=== PATIENT | female | born 2000 | race Caucasian/White ===

== ENCOUNTER 2020-10-16 23:10 | Emergency (ER) | payer MEDICAID, SELFPAY ==
[2020-10-17 01:10] VITALS: BP 105/60; PULSE 83; RESP 16; TEMP 37.4; O2SAT 100
[2020-10-17 02:03] VITALS: BP 123/62; PULSE 84; RESP 16; TEMP 37.2; O2SAT 98; BMI 21.4
[2020-10-17 02:37] LABS: Appearance Urine HAZY; Color Urine DARK YELLOW; Glucose Urine UA NEG (NEG); Leukocyte Esterase Urine 2+ (NEG); Nitrite Urine NEG (NEG); Specific Gravity - Urine 1.025 (1.005-1.025); Urine Blood 2+ (NEG); Urine Ketones >=80 MG/DL (NEG); Urine Protein 1+ MG/DL (NEG-TRACE)
[2020-10-17 02:38] LABS: UPreg QC Valid YES; Urine Pregnancy NEGATIVE (NEGATIVE)
[2020-10-17 02:43] LABS: Bacteria Urine 2+ /LPF; RBC Urine 0-2 /HPF (0); Squamous Epithelial Cell Urine 1+ /LPF
--- NOTE | 2020-10-17 02:43 | PC.NURSE ---
URINE SPECIMEN COLLECTED AND SENT FOR ANALYSIS. AWAITING RESULTS.
--- NOTE | 2020-10-17 02:48 | ED_ITS ---
HPI - Female Genitourinary General Chief complaint: Nausea/Vomiting/Diarrhea Stated complaint: Vomiting/Nausea Time Seen by Provider: 10/17/20 02:09 Source: patient Mode of arrival: ambulatory Limitations: no limitations History of Present Illness HPI Narrative: Patient been feeling diffuse lower abdominal pain lower back pain weakness nausea and dysuria for last 3 days patient had similar symptoms last year when she has UTI patient denies any fever or chills no vomiting no vaginal discharge or bleeding or hematuria. Patient vomited 1 time only yesterday and able to drink fluids today MD elicited complaint: dysuria Onset (ago): day(s) (3) Severity: mild Related Data Previous Rx's Medication Instructions Recorded levofloxacin 500 mg PO DAILY 7 Days #7 tab 10/17/20 phenazopyridine [Pyridium] 200 mg PO TID PRN #6 tab 10/17/20 Allergies Allergy/AdvReac Type Severity Reaction Status Date / Time No Known Allergies Allergy Unverified 06/30/20 18:38 [No Known Allergies*] Review of Systems Review of Systems: Constitutional : No Weight loss, No Fever, No Chills ENT/Mouth : No sore throat, No Rhinorrhea Eyes: No Eye Pain, No Swelling Cardiovascular : No Chest Pain, no palpitations Respiratory : No Cough, No Sputum, no shortness of breath Gastrointestinal : + Nausea, +Vomiting, No Diarrhea, No abdominal Pain, no black stools Genitourinary : ++ Dysuria, + Urinary Frequency Musculoskeletal : No joint pain, No Myalgias, No Joint Swelling Skin : No Skin Lesions, No rash Neuro : No Weakness, No Numbness, No Dizziness, No Headache Psych : No Anxiety/Panic, No Depression Heme/Lymph: No Bruising, No Lymphadenopathy Endocrine : No Polyuria, No Polydipsia All other systems reviewed and are negative [facility] Social History Social History Alcohol intake: never Smoking Status: Never smoker Use of substances other than those prescribed or required for medical reasons: No Advance Directives: No Advance Directives Information Provided: No Physical Exam Vital Signs: Vital Signs: Last Vital Signs Temp 98.9 F 10/17/20 02:03 Pulse 84 10/17/20 02:03 Resp 16 10/17/20 02:03 BP 123/62 10/17/20 02:03 Pulse Ox 98 10/17/20 02:03 Body Mass Index 21.4 Appearance: Alert. Oriented X3. No acute distress. Eyes: Pupils equal, round and reactive to light. ENT: Pharynx normal. Neck: Normal inspection. Neck supple. CVS: Normal heart rate and rhythm. Pulses normal. Respiratory: No respiratory distress. Breath sounds normal. Abdomen: Soft and nontender. Bowel sounds are present, no mass palpable, no CVA tenderness Skin: Skin warm and dry. Normal skin color. Normal skin turgor. Extremities: No lower extremity edema. Neuro: Oriented X 3. No motor deficit. No sensory deficit. MDM - Female Genitourinary MDM Narrative Medical decision making narrative: Patient with UTI uncomplicated. Will give her Levaquin and Pyridium for symptomatic treatment advised to follow-up with PCP Lab Data Attestation: I reviewed the patient's lab results. Labs: Lab Results 10/17/20 Range/Units 02:31 Urine Color DARK YELLOW Urine Appearance HAZY Urine pH 6.0 (5.0-8.0) Ur Specific [place] 1.025 (1.005-1.025) Urine Protein 1+ H (NEG-TRACE) MG/DL Urine Glucose (UA) NEG (NEG) MG/DL Urine Ketones >=80 (NEG) MG/DL Urine Blood 2+ H (NEG) Urine Nitrite NEG (NEG) Ur Leukocyte Esterase 2+ H (NEG) Urine RBC 0-2 (0) /HPF Urine WBC 76-150 H (0-4) /HPF Ur Squamous Epith Cells 1+ /LPF Urine Bacteria 2+ /LPF Urine Test NEGATIVE (NEGATIVE) Discharge Plan Discharge Clinical Impression: UTI (urinary tract infection) Qualifiers: Urinary tract infection type: acute cystitis Hematuria presence: without hematuria Qualified Code(s): N30.00 - Acute cystitis without hematuria Patient Disposition: Home, Self-Care Instructions: Urinary Tract Infection in Women (ED) Additional Instructions: Drink plenty fluids Take medication as prescribed Report to the ER/PCP if high fever/vomiting not feeling better Prescriptions: New levofloxacin 500 mg tablet 500 mg PO DAILY 7 Days Qty: 7 RF: 0 phenazopyridine [Pyridium] 200 mg tablet 200 mg PO TID PRN (Reason: pain) Qty: 6 RF: 0 Interventions: ED Discharge Assessment Last Done: 10/17/20 03:11 Discharge Date/Time: 10/17/20 03:11
[2020-10-17] MEDS: Phenazopyridine HCL 200 MG TABLET PO (02:59)
[2020-10-17] MEDS: levoFLOXacin 500 MG TABLET PO (02:59)
== END 2020-10-17 03:11 | disposition home or self-care (01) ==
PROVIDERS: Emergency Provider Internal Medicine
DX: N30.00 Acute cystitis without hematuria (principal)
CPT/HCPCS: 81001; 81025; 87086; 87088; 87186; 99283; 99284

== ENCOUNTER 2021-04-11 07:07 | Emergency (ER) | payer MEDICAID, SELFPAY ==
[2021-04-11 07:21] VITALS: BP 119/61; PULSE 76; RESP 16; TEMP 37.1; O2SAT 100; BMI 20.3
[2021-04-11 07:37] LABS: Glucose Urine UA NEG (NEG); Leukocyte Esterase Urine NEG (NEG); Nitrite Urine NEG (NEG); Specific Gravity - Urine >= 1.030 (1.005-1.025); UPreg QC Valid YES; Urine Blood NEG (NEG); Urine Ketones NEG (NEG); Urine Pregnancy POSITIVE (NEGATIVE); Urine Protein TRACE MG/DL (NEG-TRACE)
[2021-04-11 07:38] LABS: Appearance Urine HAZY; Color Urine YELLOW
--- NOTE | 2021-04-11 08:13 | ED_ITS ---
HPI - Nausea/Vomiting/Diarrhea General Chief complaint: Nausea/Vomiting/Diarrhea Stated complaint: dizzyness, nauseous Time Seen by Provider: 04/11/21 08:01 Source: patient Mode of arrival: ambulatory Limitations: no limitations History of Present Illness HPI Narrative: 21 yo female here with nausea/vomiting x several days, sensitive to Do certain smells. Also complaining of some dizziness and generalized weakness with moving around. Her last menstrual cycle was approximately 5 weeks ago. She is sexually active and is concerned about . She denies any abdominal pain or vaginal bleeding. MD elicited complaint: nausea and vomiting Associated nausea: Yes Related Data Previous Rx's Medication Instructions Recorded levofloxacin 500 mg PO DAILY 7 Days #7 tab 10/17/20 phenazopyridine [Pyridium] 200 mg PO TID PRN #6 tab 10/17/20 prenat.vits,rashida,ipy-ujqt-himok 1 tab PO DAILY #30 tab 04/11/21 pyridoxine (vitamin B6) 50 mg PO BID PRN #10 tab 04/11/21 Allergies Allergy/AdvReac Type Severity Reaction Status Date / Time No Known Allergies Allergy Unverified 06/30/20 18:38 [No Known Allergies*] Review of Systems Review of Systems: Yes all other systems are reviewed and are negative Constitutional: Constitutional: Reports no additional constitutional complain ts, Denies body ache(s), Denies chills, Denies fever(s), Denies headache(s) and Reports weakness Eyes: Eyes: Reports no additional eye complaints and Denies change in vision ENT: Reports system reviewed and no additional complaints, except as documented, Reports dizziness, Denies headache(s), Denies nasal congestion, Denies nasal discharge and Denies neck pain Cardiovascular: Cardiovascular: Reports no additional cardiovascular complaints, Denies chest pain, Denies leg edema and Denies dyspnea Respiratory: Respiratory: Reports no additional respiratory complaints, Denies cough and Denies dyspnea Gastrointestinal: Gastrointestinal: Reports no additional gastrointestinal complaints, Denies abdominal pain, Denies diarrhea, Reports nausea and Reports vomiting Genitourinary: Genitourinary: Reports no additional female genitourinary complaints and Denies urinary incontinence Musculoskeletal: Musculoskeletal: Reports no additional musculoskeletal complaints, Denies back pain, Denies arthralgias, Denies joint swelling, Denies neck pain, Denies numbness and Denies tingling Integumentary/Breasts: Skin/Breast: Reports system reviewed and no additional complaints, except as docu and Denies rash Neurologic: Reports system reviewed and no additional complaints, except as documented, Denies Abnormal speech present, Reports dizziness, Denies headache(s), Denies numbness, Denies tingling and Reports weakness PMFSH Past Medical History Attestation statement: The following information was validated with the patient. Source: old records reviewed and nursing notes reviewed Social History Social History Alcohol intake: never Advance Directives: No Advance Directives Information Provided: No Patient : Yes (could be ) Physical Exam Vital Signs: Vital Signs: Last Vital Signs Temp 98.7 F 04/11/21 07:21 Pulse 76 04/11/21 07:21 Resp 16 04/11/21 07:21 BP 119/61 04/11/21 07:21 Pulse Ox 100 04/11/21 07:21 Body Mass Index 20.3 Const: General: cooperative, healthy appearing, comfortable and no acute distress Orientation/consciousness: patient oriented x3 Limitations: no limitations HENMT: Head: Yes normal to inspection Ears: hearing grossly normal bilaterally General nose exam: Normal external nose present Face and sinus: Yes normal facial exam Mouth: Normal oral and palatal mucosa present Throat: Yes posterior oropharynx normal Eyes: General: appearance normal, both eyes and all related structures Pupils: Equal, round and reactive pupils present Neck: Neck: Yes normal visual inspection Chest: Chest palpation & inspection: normal inspection of the chest Resp: Effort & Inspection: normal respiratory effort Auscultation: clear to auscultation bilaterally Cardio: Rate: regular rate Rhythm: regular rhythm Peripheral pulses: Peripheral pulses 2+ throughout GI: Inspection: Yes normal to inspection Palpation (GI): Soft to palpation and nontender Auscultation: normal bowel sounds Back/Spine/Pelvis: Thoracic/Lumbar Spine: thoracic and lumbar spine normal to inspection Skin: General skin exam: no rashes or lesions noted Neuro: General: patient oriented x3, no focal motor deficits and normal sensation to monofilament Cranial nerves: Yes Equal, round and reactive pupils present Cognition (Neuro): normal cognition Speech: No Abnormal speech present Gait exam (Neuro): Normal gait present Motor exam (neuro): 5/5 motor strength present throughout Extrem: General: Yes normal to inspection Course Course Course Narrative: 21-year-old female here with complaints of dizziness, weakness, nausea, vomiting and she is 1 week late for her menses. No abdominal pain or vaginal bleeding. will check UA and urine . - UA is negative. Urine positive. Patient is tolerating p.o. in the room. She has no focal abdominal pain and is well appearing. Will refer to follow up with OB. Recommended starting and p.r.n. antiemetic as needed. Reviewed worrisome signs and symptoms of when to return to the emergency department. Comfortable discharge home. MDM - Nausea/Vomiting/Diarrhea Medical Records Attestation: I reviewed the patient's medical records. Lab Data Attestation: I reviewed the patient's lab results. Labs: Lab Results 04/11/21 04/11/21 Range/Units 07:28 07:28 Urine Color YELLOW Urine Appearance HAZY Urine pH 6.0 (5.0-8.0) Ur Specific [place] >= 1.030 H (1.005-1.025) Urine Protein TRACE (NEG-TRACE) MG/DL Urine Glucose (UA) NEG (NEG) MG/DL Urine Ketones NEG (NEG) MG/DL Urine Blood NEG (NEG) Urine Nitrite NEG (NEG) Ur Leukocyte Esterase NEG (NEG) Urine Test POSITIVE H (NEGATIVE) Discharge Plan Discharge Clinical Impression: Qualifiers: Weeks of gestation: less than 8 weeks Qualified Code(s): Z3A.01 - Less than 8 weeks gestation of Patient Disposition: Home, Self-Care Instructions: First Trimester (ED) Prescriptions: Jason teresa.vits,rashdia,day-xpzd-pzphe Tablet 1 tab PO DAILY Qty: 30 RF: 0 pyridoxine (vitamin B6) 50 mg tablet 50 mg PO BID PRN (Reason: nausea and vomiting) Qty: 10 RF: 0 No Action levofloxacin 500 mg tablet 500 mg PO DAILY 7 Days Qty: 7 RF: 0 phenazopyridine [Pyridium] 200 mg tablet 200 mg PO TID PRN (Reason: pain) Qty: 6 RF: 0 Referrals: Daniel Yoder MD [Physician] - 2 days Interventions: ED Discharge Assessment Last Done: 04/11/21 08:25 Discharge Date/Time: 04/11/21 08:26
== END 2021-04-11 08:26 | disposition home or self-care (01) ==
PROVIDERS: Emergency Provider Emergency Medicine Emergency Medical Services
DX: O21.9 Vomiting of pregnancy, unspecified (principal); O26.891 Other specified pregnancy related conditions, first trimester; R42 Dizziness and giddiness; R53.1 Weakness; Z3A.01 Less than 8 weeks gestation of pregnancy
CPT/HCPCS: 81003; 81025; 99283

== ENCOUNTER 2021-04-18 22:19 | Emergency (ER) | payer MEDICAID, SELFPAY ==
[2021-04-18 22:28] VITALS: BP 108/66; PULSE 89; RESP 18; TEMP 36.8; O2SAT 97; BMI 21.2
[2021-04-18 23:00] LABS: Glucose Urine UA 250 MG/DL (NEG); Leukocyte Esterase Urine NEG (NEG); Nitrite Urine NEG (NEG); Specific Gravity - Urine >= 1.030 (1.005-1.025); Urine Blood NEG (NEG); Urine Ketones 5 MG/DL (NEG); Urine Protein TRACE MG/DL (NEG-TRACE)
[2021-04-18 23:02] LABS: Appearance Urine CLEAR; Color Urine YELLOW; Urine Pregnancy POSITIVE (NEGATIVE)
[2021-04-18 23:03] LABS: UPreg QC Valid YES
--- NOTE | 2021-04-18 23:26 | ED.GENADULT ---
HPI - General Adult General Chief complaint: General Medical Stated complaint: NAUSEA - Time Seen by Provider: 04/18/21 23:20 Source: patient Mode of arrival: ambulatory Limitations: no limitations History of Present Illness HPI narrative: 21 y/o female whose LMP was mid-February, unknown exact date, confirmed to be comes in with intermittent nausea and vomiting. She reports going to [employer] and [employer] today but the wait was too long. She reports vomiting 4-5 times today at work and needing to leave. She reports last vomited at 2pm. Nausea now resolved. She denies abdominal pain, vaginal bleeding, bloody vomit. She admits to fatigue at work and decreased appetite. She last ate this evening and did not vomit. She has been tolerating liquids fine. She was prescribed vitamin B6 but has not been taking it regularly because she is nervous it wasn't safe for the baby. She reports with her 1st she was severely nauseated and vomited throughout the entire pregnanct. MD complaint: nausea Onset (ago): week(s) Location: abdomen Radiation: non-radiation Severity: moderate Relieving factors: none Exacerbating factors: eating Associated symptoms: loss of appetite and malaise Treatments prior to arrival: none Related Data Previous Rx's Medication Instructions Recorded levofloxacin 500 mg PO DAILY 7 Days #7 tab 10/17/20 phenazopyridine [Pyridium] 200 mg PO TID PRN #6 tab 10/17/20 prenat.vits,rashida,orm-tzox-heqrv 1 tab PO DAILY #30 tab 04/11/21 pyridoxine (vitamin B6) 50 mg PO BID PRN #10 tab 04/11/21 ondansetron 4 mg PO Q8H PRN #7 tab 04/18/21 pyridoxine (vitamin B6) 50 mg PO BID #20 tab 04/18/21 Allergies Allergy/AdvReac Type Severity Reaction Status Date / Time No Known Allergies Allergy Verified 04/18/21 22:28 [No Known Allergies*] Review of Systems Review of Systems: Constitutional: No Fever, No Chills ENT/Mouth: No sore throat, No Rhinorrhea, No Swallowing Difficulty Cardiovascular: No Chest Pain, No SOB Respiratory: No Cough, No Sputum, No Wheezing, No dyspnea Gastrointestinal: + Nausea, + Vomiting, No Diarrhea, No abdominal Pain, No Hematochezia, No Melena Genitourinary: No Dysuria, No Urinary Frequency, No Hematuria Musculoskeletal: No joint pain, No Myalgias Skin: No Skin Lesions, No rash Neuro: + Weakness, No Numbness, No Dizziness, No Headache Psych: + Anxiety/Panic, No Depression Heme/Lymph: No Bruising, No Lymphadenopathy Endocrine: No Polyuria, No Polydipsia PMF Past Medical History Attestation statement: The following information was validated with the patient. : 2 Para: 1 Hx Last Menstrual Period: LMP sometime in February Social History Social History Alcohol intake: never Advance Directives: No Patient : Yes Physical Exam Vital Signs: Vital Signs: Last Vital Signs Temp 98.3 F 04/18/21 22:28 Pulse 89 04/18/21 22:28 Resp 18 04/18/21 22:28 BP 108/66 04/18/21 22:28 Pulse Ox 97 04/18/21 22:28 Body Mass Index 21.2 Appearance: Alert. Oriented X3. No acute distress. Eyes: Pupils equal, round and reactive to light. ENT: Pharynx normal. Neck: Normal inspection. Neck supple. CVS: Normal heart rate and rhythm. Pulses normal. Respiratory: No respiratory distress. Breath sounds normal. Abdomen: Soft and nontender. +BS x4 Skin: Skin warm and dry. Normal skin color. Normal skin turgor. No rashes. Extremities: No lower extremity edema. Neuro: Oriented X 3. No motor deficit. No sensory deficit. Course Course Course Narrative: 21 y/o female unknown LMP ?midmay presenting with intermittent N/V. Able to tolerate some PO throughout the day. No current nausea. VS are stable. No abdominal pain or vaginal bleeding. She has an appointment with OB on 05/01. She appears well. Exam is benign. Pelvic exam deferred. She was counseled on use of vitamin B6 to help prevent nausea as well as thais and peppermint. Will give additional Rx for vit 6 until she can be seen by her OB in 1.5 weeks. She is stable for d/c home with supportive care and outpatient follow up. Medical Decision Making Lab Data Labs: Lab Results 04/18/21 04/18/21 Range/Units 22:45 22:45 Urine Color YELLOW Urine Appearance CLEAR Urine pH 6.0 (5.0-8.0) Ur Specific [place] >= 1.030 H (1.005-1.025) Urine Protein TRACE (NEG-TRACE) MG/DL Urine Glucose (UA) 250 H (NEG) MG/DL Urine Ketones 5 (NEG) MG/DL Urine Blood NEG (NEG) Urine Nitrite NEG (NEG) Ur Leukocyte Esterase NEG (NEG) Urine Test POSITIVE H (NEGATIVE) Critical Care Time Critical Care Time Critical Care Time: No Discharge Plan Discharge Clinical Impression: Nausea/vomiting in Patient Disposition: Home, Self-Care Instructions: Nausea and Vomiting in (ED) Additional Instructions: Rest and stay hydrated, drink plenty of water. Recommend taking vitamin B6 two times per day to help prevent nausea. Take Zofran as prescribed for severe nausea. Follow up with your [facility] as tanya on 05/01. If you develop vaginal bleeding, abdominal pain, persistent vomiting with inability to tolerate food or drink, come back to the ER for further evaluation. Prescriptions: New pyridoxine (vitamin B6) 50 mg tablet 50 mg PO BID Qty: 20 RF: 0 ondansetron 4 mg tablet,disintegrating 4 mg PO Q8H PRN (Reason: nausea and vomiting) Qty: 7 RF: 0 No Action prenat.vits,rashida,bia-houk-odjzh Tablet 1 tab PO DAILY Qty: 30 RF: 0 pyridoxine (vitamin B6) 50 mg tablet 50 mg PO BID PRN (Reason: nausea and vomiting) Qty: 10 RF: 0 levofloxacin 500 mg tablet 500 mg PO DAILY 7 Days Qty: 7 RF: 0 phenazopyridine [Pyridium] 200 mg tablet 200 mg PO TID PRN (Reason: pain) Qty: 6 RF: 0 Stand Alone Forms: Work/School Release Discharge Date/Time: 04/18/21 23:57
== END 2021-04-18 23:57 | disposition home or self-care (01) ==
PROVIDERS: Emergency Provider Emergency Medicine
DX: O21.9 Vomiting of pregnancy, unspecified (principal); Z3A.00 Weeks of gestation of pregnancy not specified
CPT/HCPCS: 81003; 81025; 99282

== ENCOUNTER 2021-08-17 19:08 | Emergency (ER) | payer MEDICAID, SELFPAY ==
[2021-08-17 19:09] VITALS: BP 112/59; PULSE 98; RESP 16; TEMP 36.9; O2SAT 99; BMI 23.1
--- NOTE | 2021-08-17 20:30 | ED.SKABFB ---
HPI - Skin/Abscess/Foreign Bdy General Chief complaint: Skin/Abscess/Foreign Body Stated complaint: knees are swollen Time Seen by Provider: 08/17/21 19:43 Source: patient Mode of arrival: ambulatory History of Present Illness HPI narrative: 21-year-old female at 6 months gestation presenting to the ED complaining of rash to bilateral posterior legs since this morning. Reports area is pruritic. Admits had similar symptoms on and wrist last week which resolved spontaneously. Denies new medications, new known exposures: Detergents/lotions, recent travel, known tick or insect bites, SOB, oral swelling, difficulty swallowing. Denies any related complaints including abdominal pain, vaginal bleeding, vaginal discharge MD complaint: rash Related Data Previous Rx's Medication Instructions Recorded levofloxacin 500 mg tablet 500 mg PO DAILY 7 Days #7 tab 10/17/20 phenazopyridine 200 mg tablet 200 mg PO TID PRN #6 tab 10/17/20 (Pyridium) prenat.vits,rashida,jmg-uzjo-qlkus 1 tab PO DAILY #30 tab 04/11/21 pyridoxine (vitamin B6) 50 mg 50 mg PO BID PRN #10 tab 04/11/21 tablet ondansetron 4 mg disintegrating 4 mg PO Q8H PRN #7 tab 04/18/21 tablet pyridoxine (vitamin B6) 50 mg 50 mg PO BID #20 tab 04/18/21 tablet diphenhydramine HCl 25 mg capsule 25 mg PO Q6H PRN #14 cap 08/17/21 (Benadryl) hydrocortisone 1 % topical 1 appl TOPICAL BID PRN #453.6 g 08/17/21 ointment (Anti-Itch (hydrocortisone)) Allergies Allergy/AdvReac Type Severity Reaction Status Date / Time No Known Allergies Allergy Verified 04/18/21 22:28 [No Known Allergies*] Review of Systems Review of Systems: Constitutional: No Fever, No Chills ENT/Mouth: No Ear Pain, No Nasal Congestion, No sore throat, No Rhinorrhea, No Swallowing Difficulty Cardiovascular: No Chest Pain, No SOB Respiratory: No Cough Gastrointestinal: No Nausea, No Vomiting, No Diarrhea, No Constipation, No Abdominal pain Genitourinary: No Dysuria, No vaginal bleeding, No vaginal discharge Musculoskeletal: No joint pain, No Myalgias, No Joint Swelling Skin: No Skin Lesions, + rash Neuro: No Weakness, No Numbness, No Paresthesias Yes all other systems are reviewed and are negative [facility] Past Medical History Attestation statement: The following information was validated with the patient. Social History Social History Alcohol intake: never Advance Directives: No Advance Directives Information Provided: No Patient : Yes Physical Exam Vital Signs: Vital Signs: Last Vital Signs Temp 98.4 F 08/17/21 19:09 Pulse 98 08/17/21 19:09 Resp 16 08/17/21 19:09 BP 112/59 L 08/17/21 19:09 Pulse Ox 99 08/17/21 19:09 Body Mass Index 23.1 Const: General: cooperative, healthy appearing and no acute distress Orientation/consciousness: patient oriented x3 Limitations: no limitations HENMT: Other: Talking in complete sentences, in no respiratory distress. Head: Yes normal to inspection Ears: hearing grossly normal bilaterally General nose exam: Normal external nose present Face and sinus: Yes normal facial exam Eyes: General: appearance normal, both eyes and all related structures EOM: EOMs intact bilaterally Neck: Neck: Yes normal visual inspection Resp: Effort & Inspection: normal respiratory effort, not labored, no respiratory distress and no stridor Cardio: Rate: regular rate Heart sounds: S1 normal heart sound present and S2 normal heart sound present GI: Inspection: Yes normal to inspection Palpation (GI): Soft to palpation, nontender, no guarding and not rigid Skin: Other: Please refer to images above of posterior knees. Large raised hives/urticaria. No streaking, no fluctuance/induration. Not warm. No calf tenderness. No palm/sole involvement. Wounds: no wounds Neuro: General: patient oriented x3 Gait exam (Neuro): Normal gait present Extrem: General: Yes normal to inspection MDM - Skin/Abscess/Foreign Bdy MDM Narrative Medical decision making narrative: 21-year-old female at 6 months gestation presenting to the ED complaining of rash to bilateral posterior legs since this morning. Reports area is pruritic. On exam vital signs stable, NAD/nontoxic, physical exam as above, please refer to images. Concern for contact dermatitis vs hives although localized vs allergic reaction. Low concern for Lyme/tick-borne illness Discussed with patient she can take Benadryl, will Rx topical hydrocortisone and needs to follow-up with manager paid/OBGYN. Discussed worrisome signs and symptoms and strict return precautions, she verbalized understanding feel safe for discharge home at this time Medical Records Attestation: I reviewed the patient's medical records. Lab Data Attestation: I reviewed the patient's lab results. Discharge Plan Discharge Clinical Impression: Hives Patient Disposition: Home, Self-Care Instructions: Urticaria (ED) Additional Instructions: Please take Benadryl for your rash In addition apply topical hydrocortisone which is a topical steroid, only apply to rash area, do not apply to face, hands, feet, and genital region as can discolored skin Please call your OBGYN for follow-up Please also call manager paid for follow-up Keep a log of everything to come in contact with, develops shortness breath, oral swelling, spreading/worsening of rash please return to the Prescriptions: New diphenhydramine HCl [Benadryl] 25 mg capsule 25 mg PO Q6H PRN (Reason: itching) Qty: 14 RF: 0 hydrocortisone [Anti-Itch (HC)] 1 % ointment 1 appl topical BID PRN (Reason: skin irritation) Qty: 453.6 RF: 0 No Action prenat.vits,rashida,gex-[id number] Tablet 1 tab PO DAILY Qty: 30 RF: 0 pyridoxine (vitamin B6) 50 mg tablet 50 mg PO BID PRN (Reason: nausea and vomiting) Qty: 10 RF: 0 levofloxacin 500 mg tablet 500 mg PO DAILY 7 Days Qty: 7 RF: 0 phenazopyridine [Pyridium] 200 mg tablet 200 mg PO TID PRN (Reason: pain) Qty: 6 RF: 0 pyridoxine (vitamin B6) 50 mg tablet 50 mg PO BID Qty: 20 RF: 0 ondansetron 4 mg tablet,disintegrating 4 mg PO Q8H PRN (Reason: nausea and vomiting) Qty: 7 RF: 0 Referrals: Lit Hoang DO [Physician] - 2 days Interventions: ED Discharge Assessment Last Done: 08/17/21 20:41 Discharge Date/Time: 08/17/21 20:44
== END 2021-08-17 20:44 | disposition home or self-care (01) ==
PROVIDERS: Emergency Provider Internal Medicine
DX: O99.712 Diseases of the skin and subcutaneous tissue complicating pregnancy, second trimester (principal); L50.9 Urticaria, unspecified; Z3A.00 Weeks of gestation of pregnancy not specified
CPT/HCPCS: 99283

== ENCOUNTER 2021-10-10 03:59 | Emergency (ER) | payer MEDICAID, SELFPAY ==
[2021-10-10 04:24] VITALS: BP 105/52; PULSE 129; RESP 20; TEMP 37.8; O2SAT 99; BMI 25.9
--- NOTE | 2021-10-10 04:45 | ED_ITS ---
HPI - URI/Sore Throat General Chief Complaint: Upper Respiratory Symptoms Stated Complaint: covid symptoms Time Seen by Provider: 10/10/21 04:24 Source: patient Mode of arrival: EMS History of Present Illness HPI Narrative: This is a 21-year-old female without significant past medical history that is , 30 weeks and 5 days with an uncomplicated who presents via EMS for complaints of shortness of breath and chest pain which s tarted in the middle the night after patient found that she was COVID-19 positive. Patient states that she is mildly nauseous but states that she still feels the fetus moving and denies any contractions/loss of fluid/vaginal bleeding. Patient states that she and her son visited her mother who was diagnosed with COVID-19 and then her son began developing a dry cough and they tested him with a home kit and noted that he was positive. Initially, the patient's test was negative but after onset of symptoms she recheck herself and noted that she is COVID-19 positive on home testing. Otherwise, she denies any abdominal pain, diarrhea, vomiting, fever, chills. Patient states on questioning regarding a noted rash that she began developing this rash when she initially got up and took some Benadryl for it and states that is very itchy and denies any recent changes in any medications, bathing products. Related Data Allergies Allergy/AdvReac Type Severity Reaction Status Date / Time No Known Allergies Allergy Unverified 06/30/20 18:42 Review of Systems Review of Systems: Pertinent positives and negatives as stated in HPI 10 point review of systems is otherwise negative. PMFSH Past Medical History Source: nursing notes reviewed Social History Social History Advance Directives: No Advance Directives Information Provided: Yes Patient : Yes Physical Exam Vital Signs: Vital Signs: Last Vital Signs Temp 100.1 F 10/10/21 04:24 Pulse 105 H 10/10/21 06:41 Resp 23 H 10/10/21 06:41 BP 100/43 L 10/10/21 06:41 Pulse Ox 98 10/10/21 06:41 BMI result Body Mass Index 25.9 VITAL SIGNS: Reviewed. GENERAL: Well developed, well nourished, in no acute distress. HEAD: Normocephalic/atraumatic EYES: PERRLA, EOMI EARS: Ext canals without abnormality, TMs non-bulging and non-erythematous NOSE: Nares patent bilateral OROPHARYNX: no oral lesions noted, posterior pharynx clear and non-erythematous without noted tonsillar enlargement/erythema/exudates, no facial/tongue/lip swelling NECK: Supple, no adenopathy LUNGS: Normal breath sounds. No adventitious sounds or accessory muscle use. SpO2<> CARDIOVASCULAR: Regular rate and rhythm without noted murmurs, no JVD or lower extremity edema. ABDOMEN: Gravid, Soft, non-tender, non-distended with bowel sounds. MUSCULOSKELETAL: No tenderness, deformities, or effusions noted on gross inspection. EXTREMITIES: No cyanosis, clubbing or edema. SKIN: Inspection of the skin reveals large macular rash noted primarily on extremities but also located on abdomen with sparing of soles and palms NEUROLOGIC: Alert and oriented x 4. Strength and sensation to light touch were grossly intact x 4. Course Course Course Narrative: 21-year-old female with history and clinical presentation consistent with viral syndrome, COVID-19 positivity, as well as a rash. Will keep an eye on patient's symptoms as it relates to the rash for possible aller gic reaction, and will proceed with basic lab work. On review of all investigations there are no acute findings other than confirming that patient is COVID-19 positive as diagnosed on her home testing CT. Patient was rehydrated and provided with antihistamines for her rash and on re-evaluation she reports that she is feeling much better than on arrival. She was instructed to follow-up with her formula weigher today to discuss her visit to the emergency room. MDM - URI/Sore Throat Lab Data Result diagrams: 10/10/21 05:06 10/10/21 05:06 Labs: Lab Results 10/10/21 10/10/21 10/10/21 Range/Units 05:05 05:06 05:06 WBC 9.2 (4.8-10.8) X10*3/uL RBC 3.65 L (4.20-5.50) X10*6/uL Hgb 11.2 L (12.0-16.0) g/dl Hct 33.5 L (37.0-47.0) % MCV 91.8 (80.0-98.0) fL MCH 30.7 (27.0-33.0) pg MCHC 33.4 (31.0-35.0) g/dl RDW 12.3 (11.0-16.0) % Plt Count 181 (160-400) X10*3/uL MPV 10.9 (9.4-12.3) fL Immature Gran % (Auto) 0.3 (0.0-0.4) % Neut % (Auto) 86.4 H (45-73) % Lymph % (Auto) 6.2 L (20-40) % [place] % (Auto) 7.0 (2-11) % Eos % (Auto) 0.0 (0-4) % Baso % (Auto) 0.1 (0-2) % Lymph # (Auto) 0.6 L (1.2-4.9) X10*3/uL [place] # (Auto) 0.7 (0.1-1.2) X10*3/uL Eos # (Auto) 0.0 (0.0-0.4) X10*3/uL Baso # (Auto) 0.0 (0.0-0.2) X10*3/uL Abs Immat Gran (auto) 0.03 (0.00-0.03) X10*3/uL Absolute Neuts (auto) 8.0 (2.0-8.3) x10*3/uL Absolute Nucleated RBC 0.000 (0.0-0.012) X10*3/uL Nucleated RBC % (auto) 0.0 (0.0-0.2) /100WBC Sodium 135 (135-145) mmol/L Potassium 3.6 (3.3-5.1) mmol/L Chloride 106 (96-108) mmol/L Carbon Dioxide 20 L (22-29) mmol/L Anion Gap 13 (12-20) BUN 6 L (9-16) mg/dL Creatinine 0.69 (0.5-1.4) mg/dL Estim Creat Clear Calc 136.3 Estimated GFR > 60 Random Glucose 102 (60-115) mg/dL Calcium 8.7 (8.4-10.2) mg/dL Total Bilirubin 0.3 (0.0-1.0) mg/dL AST 15 (5-31) U/L ALT 8 (0-31) U/L Alkaline Phosphatase 84 (39-117) U/L Total Protein 6.6 (6.5-8.0) g/dL Albumin 3.3 L (3.5-5.0) g/dL Urine Color Urine Appearance Urine pH (5.0-8.0) Ur Specific [place] (1.005-1.025) Urine Protein (NEG-TRACE) MG/DL Urine Glucose (UA) (NEG) MG/DL Urine Ketones (NEG) MG/DL Urine Blood (NEG) Urine Nitrite (NEG) Ur Leukocyte Esterase (NEG) COVID-19 ([facility]) Positive A (Negative) COVID-19 Clin Com See Note 10/10/21 Range/Units 06:56 WBC (4.8-10.8) X10*3/uL RBC (4.20-5.50) X10*6/uL Hgb (12.0-16.0) g/dl Hct (37.0-47.0) % MCV (80.0-98.0) fL MCH (27.0-33.0) pg MCHC (31.0-35.0) g/dl RDW (11.0-16.0) % Plt Count (160-400) X10*3/uL MPV (9.4-12.3) fL Immature Gran % (Auto) (0.0-0.4) % Neut % (Auto) (45-73) % Lymph % (Auto) (20-40) % [place] % (Auto) (2-11) % Eos % (Auto) (0-4) % Baso % (Auto) (0-2) % Lymph # (Auto) (1.2-4.9) X10*3/uL [place] # (Auto) (0.1-1.2) X10*3/uL Eos # (Auto) (0.0-0.4) X10*3/uL Baso # (Auto) (0.0-0.2) X10*3/uL Abs Immat Gran (auto) (0.00-0.03) X10*3/uL Absolute Neuts (auto) (2.0-8.3) x10*3/uL Absolute Nucleated RBC (0.0-0.012) X10*3/uL Nucleated RBC % (auto) (0.0-0.2) /100WBC Sodium (135-145) mmol/L Potassium (3.3-5.1) mmol/L Chloride (96-108) mmol/L Carbon Dioxide (22-29) mmol/L Anion Gap (12-20) BUN (9-16) mg/dL Creatinine (0.5-1.4) mg/dL Estim Creat Clear Calc Estimated GFR Random Glucose (60-115) mg/dL Calcium (8.4-10.2) mg/dL Total Bilirubin (0.0-1.0) mg/dL AST (5-31) U/L ALT (0-31) U/L Alkaline Phosphatase (39-117) U/L Total Protein (6.5-8.0) g/dL Albumin (3.5-5.0) g/dL Urine Color YELLOW Urine Appearance CLEAR Urine pH 6.0 (5.0-8.0) Ur Specific [place] <= 1.005 (1.005-1.025) Urine Protein NEG (NEG-TRACE) MG/DL Urine Glucose (UA) NEG (NEG) MG/DL Urine Ketones 40 (NEG) MG/DL Urine Blood NEG (NEG) Urine Nitrite NEG (NEG) Ur Leukocyte Esterase NEG (NEG) COVID-19 ([facility]) (Negative) COVID-19 Clin Com Discharge Plan Discharge Clinical Impression: Viral infection, Lab test positive for detection of COVID-19 virus, , Dehydration Patient Disposition: Home, Self-Care Instructions: (ED), Dehydration (ED), Viral Syndrome (ED), COVID-19 (Coronavirus Disease 2019) (ED) Additional Instructions: 1. Resume all home medications as prescribed. Increase fluid hydration, especially with water. 2. Tylenol 1000 mg orally, every 6 hours, as needed for body aches, temperatures greater than 100.4, or headaches. Do not exceed 4000 mg within 24 hours. 3. Consider a bedside cool mist humidifier for additional symptom relief while sleeping. 4. Call your formula weigher and arrange for a telemedicine appointment for re- evaluation and further outpatient management. 5. Continue to take Benadryl as directed on the outside packaging over the next 24 hours for your rash. You have been diagnosed with COVID-19 in must remain isolated for the next 10 days and follow all state and Federal guidelines. Return to the ER for acute worsening of symptoms.
[2021-10-10 05:11] LABS: MANUAL DIFF FLAG NO
[2021-10-10 05:12] LABS: Basophils Percent Auto 0.1 % (0-2); Hematocrit 33.5 % (37.0-47.0); Hemoglobin 11.2 g/dl (12.0-16.0); Imm Gran Abs Auto 0.03 X10*3/uL (0.00-0.03); Imm Gran Pct Auto 0.3 % (0.0-0.4); Lymphocytes Absolute Auto 0.6 X10*3/uL (1.2-4.9); Lymphocytes Percent Auto 6.2 % (20-40); Mean Corpuscular HGB Conc 33.4 g/dl (31.0-35.0); Mean Corpuscular Hemoglobin 30.7 pg (27.0-33.0); Mean Corpuscular Volume 91.8 fL (80.0-98.0); Mean Platelet Volume 10.9 fL (9.4-12.3); Monocytes Absolute Auto 0.7 X10*3/uL (0.1-1.2); Neutrophils Percent Auto 86.4 % (45-73); Platelet Count 181 X10*3/uL (160-400); Red Blood Count 3.65 X10*6/uL (4.20-5.50); Red Cell Distribution Width 12.3 % (11.0-16.0); White Blood Count 9.2 X10*3/uL (4.8-10.8)
[2021-10-10 05:20] LABS: IDNOW Serial# 9DD0AD1C
[2021-10-10 05:21] LABS: COVID-19 Test Positive (Negative)
[2021-10-10] MEDS: ondansetron HCL 4 MG/2 ML VIAL IVPUSH (05:21)
[2021-10-10] MEDS: diphenhydrAMINE HCL 50 MG/ML VIAL 25 MG IVPUSH (05:21)
[2021-10-10] MEDS: 0.9 % Sodium Chloride 2,000 ML 999 ML IV (05:25)
[2021-10-10 05:26] LABS: Alanine Aminotransferase 8 U/L (0-31); Albumin Level 3.3 g/dL (3.5-5.0); Alkaline Phosphatase 84 U/L (39-117); Anion Gap 13 (12-20); Aspartate Amino Transferase 15 U/L (5-31); Bilirubin Total 0.3 mg/dL (0.0-1.0); Blood Urea Nitrogen 6 mg/dL (9-16); Calcium 8.7 mg/dL (8.4-10.2); Carbon Dioxide 20 mmol/L (22-29); Chloride 106 mmol/L (96-108); Creatinine Clr Calc Pharmacy 136.3; Estimated Glomerular Filt Rate > 60; Glucose Random 102 mg/dL (60-115); Potassium 3.6 mmol/L (3.3-5.1); Sodium 135 mmol/L (135-145); Total Protein 6.6 g/dL (6.5-8.0)
--- NOTE | 2021-10-10 05:48 | PC.NURSE ---
IV PLACED TO LAC, NS X 2 UP AND RUNNING W/O, SITE INTACT. PT MEDICATED PER EMAR. PT RESTING, RESPIRATIONS EASY, N/L. SKIN W/D.
[2021-10-10 06:41] VITALS: BP 100/43; PULSE 105; RESP 23; O2SAT 98
[2021-10-10 07:08] LABS: Appearance Urine CLEAR; Color Urine YELLOW; Glucose Urine UA NEG (NEG); Leukocyte Esterase Urine NEG (NEG); Nitrite Urine NEG (NEG); Specific Gravity - Urine <= 1.005 (1.005-1.025); Urine Blood NEG (NEG); Urine Ketones 40 MG/DL (NEG); Urine Protein NEG (NEG-TRACE)
[2021-10-10 07:27] VITALS: BP 106/38; PULSE 125; RESP 19; TEMP 37.5; O2SAT 98
[2021-10-10] MEDS: Acetaminophen 325 MG TABLET 975 MG PO (07:34)
== END 2021-10-10 07:44 | disposition home or self-care (01) ==
PROVIDERS: Emergency Provider Student in an Organized Health Care Education/Training Program
DX: O98.513 Other viral diseases complicating pregnancy, third trimester (principal); U07.1 COVID-19; B34.9 Viral infection, unspecified; O99.283 Endocrine, nutritional and metabolic diseases complicating pregnancy, third trimester; E86.0 Dehydration; Z3A.30 30 weeks gestation of pregnancy
CPT/HCPCS: 36415; 80053; 81003; 85025; 87635; 96361; 96374; 96375; 99284; J1200; J2405

== ENCOUNTER 2024-04-09 23:15 | Inpatient (IN) | payer MEDICAID, OTHER, SELFPAY ==
[2024-04-09 23:18] VITALS: BP 130/69; PULSE 66; RESP 16; TEMP 36.6; O2SAT 98; BMI 20.4
--- NOTE | 2024-04-09 23:57 | ECG_ITS ---
Test Reason : OD Blood Pressure : / mmHG Vent. Rate : 057 BPM Atrial Rate : 057 BPM P-R Int : 138 ms QRS Dur : 082 ms QT Int : 374 ms P-R-T Axes : 052 090 055 degrees QTc Int : 364 ms Sinus bradycardia Rightward axis Borderline ECG When compared with ECG of 13-FEB-2018 17:45, Non-specific change in ST segment in Anterior leads T wave inversion no longer evident in Anterior leads Referred By: Eben Sarkar Electronically Signed By:VÍCTOR SANCHEZ MD
--- NOTE | 2024-04-10 00:01 | ED_ITS ---
HPI - Overdose General Chief Complaint: Overdose Stated Complaint: took a lot of ibuprofen, stomach pain Time Seen by Provider: 04/09/24 23:54 Source: patient Mode of arrival: ambulatory Limitations: no limitations History of Present Illness ED Provider: yumiko PERALTA Narrative: Patient with no known history of depression or psych issues under increased stress took about 15 tablets of 600 mg of ibuprofen at 22:00 intentionally not sure why she took them told her mom who brought her here no history of overdose in the past no other substance abuse patient denies SI or HI patient feels slightly nauseated no vomiting Related Data Previous Rx's ?Medication ?Instructions ?Recorded prenat.vits,rashida,[id number] 1 tab PO DAILY #30 tabs 04/11/21 pyridoxine (vitamin B6) 50 mg 50 mg PO BID PRN nausea and 04/11/21 tablet vomiting #10 tabs pyridoxine (vitamin B6) 50 mg 50 mg PO BID #20 tabs 04/18/21 tablet diphenhydramine HCl 25 mg capsule 25 mg PO Q6H PRN itching #14 caps 08/17/21 (Benadryl) Allergies Allergy/AdvReac Type Severity Reaction Status Date / Time No Known Allergies Allergy Verified 04/09/24 23:19 [No Known Allergies*] Review of Systems 2 Review of Systems: Yes all other systems are reviewed and are negative PMFSH Past Medical History Medical History (Updated 04/10/24 @ 17:51 by Meliton Ireland MD) Panic disorder MDD (major depressive disorder), recurrent episode, moderate PTSD (post-traumatic stress disorder) Social History Social History Household Members: None Housing: Apartment Do you presently have visiting nurse or other home services: No Alcohol intake: never Patient Tobacco Use Status: Never used Tobacco Smoked in Last 30 Days: No Second Hand Smoke Exposure: No Use of substances other than those prescribed or required for medical reasons: Yes Substance Use Type: Marijuana Substance Use Frequency: Weekly Last Used Substance: Weeks (ago) Currently Displaying Signs/Symptoms of Drug Intoxication Withdrawal: No Any prior treatment program specific to substance use: No Have you been hit, kicked, punched, or otherwise hurt by someone within the past year? If so, by whom?: No Do you feel safe in your current relationship?: No Current Relationship Is there a partner from a previous relationship who is making you feel unsafe now?: No Are you made to feel afraid or neglected: No Advance Directives: No Advance Directives Information Provided: Yes Do you have a plan to hurt others: No Plan Recently lost weight without trying: Yes How much weight loss: 24-33 pounds Eating poorly because of decreased appetite: Yes Nutrition screen score: 6 Nutrition Risks: No Nutritional Risk Patient : No : No Poor oral hygiene: No Physical Exam 2 Vital Signs: Vital Signs: Last Vital Signs Temp 98.5 F 04/10/24 20:15 Pulse 68 04/10/24 20:15 Resp 18 04/10/24 20:15 BP 120/56 L 04/10/24 20:15 Pulse Ox 99 04/10/24 20:15 O2 Del Method Room Air 04/10/24 20:15 BMI result Body Mass Index 20.4 Appearance: Alert. Oriented X3. No acute distress. Eyes: PERRLA, No Nystagmus ENT: Pharynx normal. Oral Mucosa moist Neck: Normal inspection. Neck supple. CVS: Normal heart rate and rhythm. Pulses normal. Respiratory: No respiratory distress. Equal air entry bilateral, no wheezing/rales/rhonchi Abdomen: Soft and nontender. Bowel sounds are present, no mass palpable, no CVA tenderness Skin: Skin warm and dry. Normal skin color. Normal skin turgor. Extremities: No lower extremity edema. No calf tenderness psych: Stable mood denies any SI or HI Neuro: Oriented X 3. No motor deficit. No sensory deficit.No cerebellar signs , cranial nerves II-XII intact Course Course Course Narrative: Physician observation continued. VS stable, previously medically cleared, no acute events overnight, inpatient bed search 04/10/24 843am Medications Administered Generic Name Dose Route Start Last Admin Trade Name Freq PRN Reason Stop Dose Admin Diphenhydramine HCl 25 mg 04/10/24 13:28 04/10/24 13:46 Diphenhydramine Hcl 25 Mg Capsule PO 25 mg Q6H PRN Administration itching Melatonin 3 mg 04/10/24 21:00 04/10/24 20:53 Melatonin 3 Mg Tablet PO 3 mg BEDTIME GREG Administration Discontinued Medications Generic Name Dose Route Start Last Admin Trade Name Freq PRN Reason Stop Dose Admin Al Hydroxide/Mg Hydroxide 30 ml 04/09/24 23:54 04/10/24 00:42 Magnesium Hydrox/Alum Hydrox 30 Ml Oral.Susp PO 04/09/24 23:55 30 ml ONCE ONE Administration Charcoal 50 gm 04/09/24 23:57 04/10/24 00:42 Activated Charcoal 50 Gm/240 Ml Oral.Susp PO 04/09/24 23:58 50 gm ONCE ONE Administration Famotidine 20 mg 04/09/24 23:57 04/10/24 00:42 Famotidine/Pf 20 Mg/2 Ml Vial IVPUSH 04/09/24 23:58 20 mg ONCE ONE Administration Fluoxetine HCl 10 mg 04/10/24 16:56 04/10/24 17:10 Fluoxetine Hcl 10 Mg Capsule PO 04/10/24 16:57 10 mg ONCE ONE Administration Sodium Chloride 1,000 mls @ 999 mls/hr 04/09/24 23:54 04/10/24 02:12 Ns IV 04/10/24 00:54 Infused .Q1H1M ONE Infusion Medical Decision Making Medical Decision Making [facility] Narrative: Patient has increased stress/anxiety took nontoxic dose of ibuprofen labs are stable medically cleared for care team evaluation Differential Diagnosis Differential Diagnoses: The differential diagnosis associated with the presentation includes Depression/SI/overdose Admission/Observation Consideration of admission/observation: Escalation of care including admission/observation considered Lab Data [facility] Lab Attestation statement: I reviewed the patient's lab results. 04/10/24 00:25 04/10/24 00:25 Labs: Lab Results 04/10/24 04/10/24 Range/Units 00:25 10:52 WBC 14.9 H (4.8-10.8) X10*3/uL RBC 4.24 (4.20-5.50) X10*6/uL Hgb 13.3 (12.0-16.0) g/dl Hct 38.6 (37.0-47.0) % MCV 91.0 (80.0-98.0) fL MCH 31.4 (27.0-33.0) pg MCHC 34.5 (31.0-35.0) g/dl RDW 13.3 (11.0-16.0) % Plt Count 269 D (160-400) X10*3/uL MPV 10.7 (9.4-12.3) fL Immature Gran % (Auto) 0.3 (0.0-0.4) % Neut % (Auto) 70.8 (45-73) % Lymph % (Auto) 22.7 (20-40) % [place] % (Auto) 5.7 (2-11) % Eos % (Auto) 0.2 (0-4) % Baso % (Auto) 0.3 (0-2) % Lymph # (Auto) 3.4 (1.2-4.9) X10*3/uL [place] # (Auto) 0.9 (0.1-1.2) X10*3/uL Eos # (Auto) 0.0 (0.0-0.4) X10*3/uL Baso # (Auto) 0.0 (0.0-0.2) X10*3/uL Abs Immat Gran (auto) 0.04 H (0.00-0.03) X10*3/uL Absolute Neuts (auto) 10.6 H (2.0-8.3) x10*3/uL Absolute Nucleated RBC 0.000 (0.0-0.012) X10*3/uL Nucleated RBC % (auto) 0.0 (0.0-0.2) /100WBC Sodium 139 (135-145) mmol/L Potassium 3.7 (3.3-5.1) mmol/L Chloride 106 (96-108) mmol/L Carbon Dioxide 23 (22-29) mmol/L Anion Gap 14 (12-20) BUN 13 (9-16) mg/dL Creatinine 0.85 (0.5-1.4) mg/dL Estim Creat Clear Calc 94.9 Estimated GFR > 60 Random Glucose 87 (60-115) mg/dL Calcium 9.9 D (8.4-10.2) mg/dL Magnesium 1.9 (1.6-2.6) mg/dL Total Bilirubin 0.7 (0.0-1.0) mg/dL AST 16 (5-31) U/L ALT 14 (0-31) U/L Alkaline Phosphatase 47 (39-117) U/L Total Protein 7.4 (6.5-8.0) g/dL Albumin 4.4 (3.5-5.0) g/dL Beta HCG, Quant < 2 mIU/mL Urine Color Yellow Urine Appearance Clear Urine pH 6.5 (5.0-9.0) Ur Specific [place] 1.020 (1.005-1.025) Urine Protein Negative (Neg-Trace) mg/dL Urine Glucose (UA) Negative (Negative) mg/dL Urine Ketones Negative (Negative) mg/dL Urine Blood Small (1+) H (Negative) Urine Nitrite Negative (Negative) Ur Leukocyte Esterase Trace H (Negative) Urine RBC 6-10 H (0-2) /HPF Urine WBC 6-10 H (0-5) /HPF Ur Squamous Epith Cells 6-10 (0-2) /HPF Urine Bacteria 2+ (None Seen) Hyaline Casts 0-2 (0-2) /LPF Salicylates < 5.0 L (15-30) mg/dL Urine Opiates Screen Not Detected (Not Detect) Ur Buprenorphine Scrn Not Detected (Not Detect) ng/mL Ur Oxycodone Screen Not Detected (Not Detect) ng/mL Urine Methadone Screen Not Detected (Not Detect) ng/mL Urine Fentanyl Screen Not Detected (Not Detect) Acetaminophen < 3 (<30) mcg/mL Ur Barbiturates Screen Not Detected (Not Detect) Ur Phencyclidine Scrn Not Detected (Not Detect) Ur Amphetamines Screen Not Detected (Not Detect) U Benzodiazepines Scrn Not Detected (Not Detect) Urine Cocaine Screen Not Detected (Not Detect) U Marijuana (THC) Screen POSITIVE H (Not Detect) Ethyl Alcohol < 10 mg/dL Independent Interpretation I performed an independent interpretation of an: EKG Interpretation: Sinus bradycardia heart rate 57 beats per minute normal intervals normal axis QTC 364ms no acute ST T wave changes Discharge Plan Discharge Clinical Impression: Drug overdose Patient Disposition: Still a Patient Interventions: Admission Worksheet (ED) Last Done: 04/10/24 12:27 Discharge Date/Time: 04/10/24 12:28
[2024-04-10 00:30] LABS: MANUAL DIFF FLAG NO
[2024-04-10 00:32] LABS: Basophils Percent Auto 0.3 % (0-2); Eosinophils Percent Auto 0.2 % (0-4); Hematocrit 38.6 % (37.0-47.0); Hemoglobin 13.3 g/dl (12.0-16.0); Imm Gran Abs Auto 0.04 X10*3/uL (0.00-0.03); Imm Gran Pct Auto 0.3 % (0.0-0.4); Lymphocytes Absolute Auto 3.4 X10*3/uL (1.2-4.9); Lymphocytes Percent Auto 22.7 % (20-40); Mean Corpuscular HGB Conc 34.5 g/dl (31.0-35.0); Mean Corpuscular Hemoglobin 31.4 pg (27.0-33.0); Mean Platelet Volume 10.7 fL (9.4-12.3); Monocytes Absolute Auto 0.9 X10*3/uL (0.1-1.2); Monocytes Percent Auto 5.7 % (2-11); Neutrophils Absolute Auto 10.6 x10*3/uL (2.0-8.3); Neutrophils Percent Auto 70.8 % (45-73); Platelet Count 269 X10*3/uL (160-400); Red Blood Count 4.24 X10*6/uL (4.20-5.50); Red Cell Distribution Width 13.3 % (11.0-16.0); White Blood Count 14.9 X10*3/uL (4.8-10.8)
[2024-04-10] MEDS: Famotidine/PF 20 MG/2 ML VIAL IVPUSH (00:42)
[2024-04-10] MEDS: Magnesium Hydrox/Alum Hydrox 30 ML ORAL.SUSP PO (00:42)
[2024-04-10] MEDS: Activated charcoaL 50 GM/240 ML ORAL.SUSP PO (00:42)
[2024-04-10] MEDS: 0.9 % Sodium Chloride 1,000 ML 999 ML IV (00:43)
[2024-04-10 00:49] LABS: Ethanol < 10 mg/dL
[2024-04-10 00:52] LABS: Alanine Aminotransferase 14 U/L (0-31); Albumin Level 4.4 g/dL (3.5-5.0); Alkaline Phosphatase 47 U/L (39-117); Anion Gap 14 (12-20); Aspartate Amino Transferase 16 U/L (5-31); Bilirubin Total 0.7 mg/dL (0.0-1.0); Blood Urea Nitrogen 13 mg/dL (9-16); Calcium 9.9 mg/dL (8.4-10.2); Carbon Dioxide 23 mmol/L (22-29); Chloride 106 mmol/L (96-108); Creatinine Clr Calc Pharmacy 94.9; Estimated Glomerular Filt Rate > 60; Glucose Random 87 mg/dL (60-115); Magnesium 1.9 mg/dL (1.6-2.6); Potassium 3.7 mmol/L (3.3-5.1); Sodium 139 mmol/L (135-145); Total Protein 7.4 g/dL (6.5-8.0)
[2024-04-10 00:53] LABS: HCG Quantitative < 2 mIU/mL
[2024-04-10 00:54] LABS: Acetaminophen LAB < 3 mcg/mL (<30); Salicylate < 5.0 mg/dL (15-30)
--- NOTE | 2024-04-10 03:34 | PC.NURSE ---
pt tolerated activated charcoal well. eating afterward. now resting comfortably with eyes closed, breathing even and unlabored. no apparent distress noted. call evans w/in reach
[2024-04-10 04:48] VITALS: BP 118/66; PULSE 56; RESP 16; TEMP 36.8; O2SAT 96
--- NOTE | 2024-04-10 07:07 | PC.NURSE ---
Assumed care of patient at 0645. No signs of distress observed and breathing is even and unlabored. Patient is observed resting quietly in their bed.
[2024-04-10 11:00] LABS: Appearance Urine Clear; Color Urine Yellow; Glucose Urine UA Negative (Negative); Leukocyte Esterase Urine Trace (Negative); Nitrite Urine Negative (Negative); PH 6.5 (5.0-9.0); UMIC TRIGGER UACC YES; Urine Blood Small (1+) (Negative); Urine Ketones Negative (Negative); Urine Protein Negative (Neg-Trace)
[2024-04-10 11:09] LABS: Amphetamine Screen Urine Not Detected (Not Detect); Barbiturates, Urine Not Detected (Not Detect); Benzodiazepines Screen Urine Not Detected (Not Detect); Buprenorphine Scr Not Detected (Not Detect); Cannabinoid Screen Urine POSITIVE (Not Detect); Cocaine Screen Urine Not Detected (Not Detect); Fentanyl, urine Not Detected (Not Detect); Methadone Screen, Urine Not Detected (Not Detect); Opiate Screen Urine Not Detected (Not Detect); Oxycodone Screen Urine Not Detected (Not Detect); Phencyclidine Screen Urine Not Detected (Not Detect)
[2024-04-10 11:12] LABS: Bacteria Urine 2+ (None Seen); Hyaline Casts Urine 0-2 /LPF (0-2); UACC Culture Trigger YES
[2024-04-10 12:30] VITALS: BP 115/67; PULSE 64; RESP 16; TEMP 36.7; O2SAT 98; BMI 19.4
[2024-04-10] MEDS: diphenhydrAMINE HCL 25 MG CAPSULE PO (13:46)
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
[2024-04-10] MEDS: FLUoxetine HCl 10 MG CAPSULE PO (17:10)
--- NOTE | 2024-04-10 18:52 | PC.ADMIT ---
Pt is a 24 yo female admitted to at 1230 on a CV after an overdose on 15 tablets of 600mg Ibuprofen. Pt has no previous psych admissions. Pt denied SI intent and stated that she was only trying to fall asleep. Pt denied thoughts to harm herself and stated that she felt overwhelmed with ongoing lack of sleep and caring for her youngest alone. Pt reported struggling with depression and anxiety secondary to recent breakup, financial stressors, and limited support. Pt also reported she had not processed past trauma. Pt polite and cooperative on arrival, and open to treatment. Pt placed on 15 minute checks.
[2024-04-10 20:15] VITALS: BP 120/56; PULSE 68; RESP 18; TEMP 36.9; O2SAT 99
[2024-04-10] MEDS: Melatonin 3 MG TABLET PO (20:53)
[2024-04-10 23:00] LABS: Glucose, Whole Blood 84 mg/dL (60-115)
[2024-04-11 07:56] LABS: Estimated Average Glucose 94 mg/dL; Hemoglobin A1c % 4.9 % (<6.0)
[2024-04-11 07:57] LABS: Cholesterol 119 mg/dL (<200); HDL Cholesterol 45 mg/dL (>40); LDL Cholesterol Calculated 63 mg/dL (<100); Triglycerides 57 mg/dL (<150)
[2024-04-11 08:00] VITALS: BP 110/60; PULSE 53; RESP 16; TEMP 36.9; O2SAT 99
[2024-04-11 08:12] LABS: TSH reflex Free T4 0.69 uIU/mL (0.32-4.0)
[2024-04-11] MEDS: diphenhydrAMINE HCL 25 MG CAPSULE PO ×2 (08:32→21:05)
[2024-04-11] MEDS: FLUoxetine HCl 10 MG CAPSULE PO (08:32)
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
[2024-04-11 20:00] VITALS: BP 110/60; PULSE 56; RESP 18; TEMP 36.6; O2SAT 99
[2024-04-11] MEDS: Melatonin 3 MG TABLET PO (21:05)
--- NOTE | 2024-04-11 21:15 | PC.NURSE ---
pt signed a 3 day notice on saturday04/11/2024. up on saturday04/15/2024.
[2024-04-12 08:00] VITALS: BP 105/54; PULSE 60; RESP 16; TEMP 37.2; O2SAT 99
[2024-04-12] MEDS: FLUoxetine HCl 10 MG CAPSULE PO (08:31)
--- NOTE | 2024-04-12 17:12 | HO.PSYCHPN ---
Subjective Subjective Date of Service: 04/12/24 Reason For Visit: took a lot of ibuprofen, stomach pain Interim History: Reports feeling improved since admission. Tolerating Prozac well. Denies side effects. Denies SI/AVH. Happy her mother and sister may visit today. Engaged in the milieu, peers and with staff. Good sleep and appetite. [place] uncomfortable yesterday with a peer but that patient was transferred to another unit because he was involved in an altercation with another patient. Denies SI/HI/AVH. Review of Systems Review of Systems Yes all other systems are reviewed and are negative Mental Status Exam Mental Status Exam Narrative: Pt is alert and oriented; behavior is cooperative, friendly and calm; patient is not in distress; dressed in hospital attire, neatly combed hair, which is partially dyed; adequate hygiene; mood is described as better and affect congruent; eye contact appropriate; Speech is normal rate, volume and prosody and not pressured; some psychomotor retardation present; thought process is organized and goal directed; Thought content is on recent stressors; tx; otherwise pertinent to relevant topics and without any delusional content, paranoid ideations or grandiosity; denies any SI/HI. There is no evidence of perceptual disturbance. Patients insight and judgment appear intact. Diagnostics Vital Signs (24Hr): Vital Signs - 24 hr 04/11/24 20:00 04/12/24 08:00 Temperature 97.9 F 99.0 F Pulse Rate 56 60 Respiratory Rate 18 16 Blood Pressure 110/60 105/54 L Pulse Oximetry 99 99 Oxygen Delivery Method Room Air Room Air BMI result Body Mass Index 19.4 Labs 04/10/24 00:25 04/10/24 00:25 Labs: Laboratory Results - last 48 hr 04/10/24 04/11/24 22:56 07:17 POC Glucose 84 Estimat Average Glucose 94 Hemoglobin A1c % 4.9 Triglycerides 57 Cholesterol 119 LDL Cholesterol, Calc 63 HDL Cholesterol 45 TSH 0.69 Medications Medications Current Medications Acetaminophen (Acetaminophen 325 Mg Tablet) 650 mg PO Q6H PRN PRN Reason: Headache/Pain Mild Scale (1-3) Al Hydroxide/Mg Hydroxide (Magnesium Hydrox/Alum Hydrox 30 Ml Oral.Susp) 30 ml PO Q6H PRN PRN Reason: Heartburn/Nausea Clonidine HCl (Clonidine Hcl 0.1 Mg Tablet) 0.1 mg PO Q4H PRN; Protocol PRN Reason: moderate anxiety Diphenhydramine HCl (Diphenhydramine Hcl 25 Mg Capsule) 25 mg PO Q6H PRN PRN Reason: itching Last Admin: 04/11/24 21:05 Dose: 25 mg Fluoxetine HCl (Fluoxetine Hcl 10 Mg Capsule) 10 mg PO DAILY [facility] Last Admin: 04/12/24 08:31 Dose: 10 mg Hydroxyzine HCl (Hydroxyzine Hcl 25 Mg Tablet) 25 mg PO Q6H PRN PRN Reason: Anxiety Magnesium Hydroxide (Milk Of Magnesia 30 Ml Oral.Susp) 30 ml PO DAILY PRN PRN Reason: Constipation Melatonin (Melatonin 3 Mg Tablet) 3 mg PO BEDTIME GREG Last Admin: 04/11/24 21:05 Dose: 3 mg Trazodone HCl (Trazodone Hcl 50 Mg Tablet) 50 mg PO BEDTIME MRX1 PRN PRN Reason: Insomnia Allergies Allergies Allergy/AdvReac Type Severity Reaction Status Date / Time No Known Allergies Allergy Verified 04/09/24 23:19 [No Known Allergies*] Assessment & Plan Assessment & Plan (1) MDD (major depressive disorder), recurrent episode, moderate: Status: Acute Code(s): F33.1 - Major depressive disorder, recurrent, moderate (2) PTSD (post-traumatic stress disorder): Status: Acute Code(s): F43.10 - Post-traumatic stress disorder, unspecified (3) Panic disorder: Status: Acute Code(s): F41.0 - Panic disorder [episodic paroxysmal anxiety] Plan HPI: Pt is a 24 yo female, mother of 2, no previous psych admissions, who presents for overdose on Ibuprofen after a month of intense psycho-social stressors. Pt reports that until a month ago, she was overall fine dealing with low level of depression since her eldest son in custody of her mother and 1/month having a panic attack, but otherwise coping well enough on her own. She started seeing a therapist 3 months which has been helpful. 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 The past few weeks she's been emotionally overwhelmed, depressed and been having panic attacks up to 4x a week (rapid HR, hyperventilating, diaphoretic, chest pressure, confusion which lasts for about 1 minute); she's also developed insomnia, having much trouble falling and staying asleep. This past week, she had first ever episode of sleep paralysis 2x which she found terrifying. Yesterday, she asked ex-partner to watch their 2 yo but he refused. She was desperate to sleep and took 10 ibuprofen; after 20 minutes, not sleepy, she got worried, called her mom who took her to hospital. Pt reiterates she only wanted to sleep, figured it's just ibuprofen...that cant really hurt anyone... She denies any SI at all or ever and says I could never do such a thing... Her 2 yo was home at the time, DCF called and now 2yo is in custody also with her mother. Pt denies any drug/alcohol abuse other than intermittent cannabis; denies manic episodes or behaviors; no AVH; endorses hx of trauma; no hx of medication trials Formulation/clinical reasoning: Patient has history of trauma with PTSD symptoms and chronic. mild to moderate depression; however she has been able to cope with this on her own, working and raising her son. However intense psychosocial stressors including break-up of a long-term relationship, losing her job, her car and facing homelessness have proved overwhelming and exacerbated her chronic symptoms. Patient started therapy 3 months ago. She would like to start medication to help her cope further with her symptoms. Discussed Prozac, risks/side effects with which she understands and agrees. Patient denies any SI at all and has no history of self-harm; loves her 2 sons and remains hopeful and pursuant about getting back custody. Patient did not want any benzos even for panic Plan: CV Q 15 minute checks Prozac 10 mg daily Clonidine p.r.n. for anxiety Melatonin 3 mg q.h.s. Trazodone p.r.n. Benadryl 25 mg q.6 p.r.n. for itching; patient reports intermittent itching episodes ever since she had her 2nd child 04/11: continue current management and treatment plan. 04/12: continue current management and treatment plan. Reason for continued inpatient stay Substantial Risk for: harm to self and rapid decompensation Time Spent With Patient Time: Total time managing care of this patient today ____ minutes.
[2024-04-12 20:00] VITALS: BP 123/59; PULSE 72; RESP 16; TEMP 36.8; O2SAT 99
[2024-04-12] MEDS: Melatonin 3 MG TABLET PO (21:12)
[2024-04-13 08:00] VITALS: BP 121/56; PULSE 69; RESP 16; TEMP 36.9; O2SAT 100
[2024-04-13] MEDS: FLUoxetine HCl 10 MG CAPSULE PO (09:09)
--- NOTE | 2024-04-13 12:23 | HO.PSYCHPN ---
Subjective Subjective Date of Service: 04/13/24 Reason For Visit: took a lot of ibuprofen, stomach pain Interim History: met with patient; discussed with team pt reports she is great and depression and anxiety resolved. Pt says she's had a good weekend, grateful for staff, Prozac helping and no med side-effects, sleeping well... No panic at all including following triggering milue event which pt reports she handled well. She has talked w/ her mother and is hopeful about DCF case; she can return to her apartment for a time being and otherwise has several family members with whom she can stay. Pt signed a 3 day notice and feels ready to return home. Mental Status Exam Mental Status Exam Narrative: Pt is alert and oriented; behavior is cooperative, friendly and calm; patient is not in distress; dressed in hospital attire; dyed red streak in hair and with adequate hygiene; mood is described as great and affect congruent, bright, calm; eye contact appropriate; Speech is normal rate, volume and prosody and not pressured; no psychomotor agitation/retardation present; thought process is organized and goal directed; Thought content is on tx; otherwise pertinent to relevant topics and without any delusional content, paranoid ideations or grandiosity; denies any SI/HI. There is no evidence of perceptual disturbance. Patients insight and judgment appear intact. Diagnostics Vital Signs (24Hr): Vital Signs - 24 hr 04/12/24 20:00 04/13/24 08:00 Temperature 98.3 F 98.4 F Pulse Rate 72 69 Respiratory Rate 16 16 Blood Pressure 123/59 L 121/56 L Pulse Oximetry 99 100 Oxygen Delivery Method Room Air Room Air BMI result Body Mass Index 19.4 Labs 04/10/24 00:25 04/10/24 00:25 Medications Medications Current Medications Acetaminophen (Acetaminophen 325 Mg Tablet) 650 mg PO Q6H PRN PRN Reason: Headache/Pain Mild Scale (1-3) Al Hydroxide/Mg Hydroxide (Magnesium Hydrox/Alum Hydrox 30 Ml Oral.Susp) 30 ml PO Q6H PRN PRN Reason: Heartburn/Nausea Clonidine HCl (Clonidine Hcl 0.1 Mg Tablet) 0.1 mg PO Q4H PRN; Protocol PRN Reason: moderate anxiety Diphenhydramine HCl (Diphenhydramine Hcl 25 Mg Capsule) 25 mg PO Q6H PRN PRN Reason: itching Last Admin: 04/11/24 21:05 Dose: 25 mg Fluoxetine HCl (Fluoxetine Hcl 10 Mg Capsule) 10 mg PO DAILY [facility] Last Admin: 04/13/24 09:09 Dose: 10 mg Hydroxyzine HCl (Hydroxyzine Hcl 25 Mg Tablet) 25 mg PO Q6H PRN PRN Reason: Anxiety Magnesium Hydroxide (Milk Of Magnesia 30 Ml Oral.Susp) 30 ml PO DAILY PRN PRN Reason: Constipation Melatonin (Melatonin 3 Mg Tablet) 3 mg PO BEDTIME GREG Last Admin: 04/12/24 21:12 Dose: 3 mg Trazodone HCl (Trazodone Hcl 50 Mg Tablet) 50 mg PO BEDTIME MRX1 PRN PRN Reason: Insomnia Allergies Allergies Allergy/AdvReac Type Severity Reaction Status Date / Time No Known Allergies Allergy Verified 04/09/24 23:19 [No Known Allergies*] Assessment & Plan Assessment & Plan (1) MDD (major depressive disorder), recurrent episode, moderate: Status: Acute Code(s): F33.1 - Major depressive disorder, recurrent, moderate (2) PTSD (post-traumatic stress disorder): Status: Acute Code(s): F43.10 - Post-traumatic stress disorder, unspecified (3) Panic disorder: Status: Acute Code(s): F41.0 - Panic disorder [episodic paroxysmal anxiety] Plan HPI: Pt is a 24 yo female, mother of 2, no previous psych admissions, who presents for overdose on Ibuprofen after a month of intense psycho-social stressors. Pt reports that until a month ago, she was overall fine dealing with low level of depression since her eldest son in custody of her mother and 1/month having a panic attack, but otherwise coping well enough on her own. She started seeing a therapist 3 months which has been helpful. 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 The past few weeks she's been emotionally overwhelmed, depressed and been having panic attacks up to 4x a week (rapid HR, hyperventilating, diaphoretic, chest pressure, confusion which lasts for about 1 minute); she's also developed insomnia, having much trouble falling and staying asleep. This past week, she had first ever episode of sleep paralysis 2x which she found terrifying. Yesterday, she asked ex-partner to watch their 2 yo but he refused. She was desperate to sleep and took 10 ibuprofen; after 20 minutes, not sleepy, she got worried, called her mom who took her to hospital. Pt reiterates she only wanted to sleep, figured it's just ibuprofen...that cant really hurt anyone... She denies any SI at all or ever and says I could never do such a thing... Her 2 yo was home at the time, DCF called and now 2yo is in custody also with her mother. Pt denies any drug/alcohol abuse other than intermittent cannabis; denies manic episodes or behaviors; no AVH; endorses hx of trauma; no hx of medication trials Formulation/clinical reasoning: Patient has history of trauma with PTSD symptoms and chronic. mild to moderate depression; however she has been able to cope with this on her own, working and raising her son. However intense psychosocial stressors including break-up of a long-term relationship, losing her job, her car and facing homelessness have proved overwhelming and exacerbated her chronic symptoms. Patient started therapy 3 months ago. She would like to start medication to help her cope further with her symptoms. Discussed Prozac, risks/side effects with which she understands and agrees. Patient denies any SI at all and has no history of self-harm; loves her 2 sons and remains hopeful and pursuant about getting back custody. Patient did not want any benzos even for panic Hospital course: 04/13/24 pt reports she is great and depression and anxiety resolved. Pt says she's had a good weekend, grateful for staff, Prozac helping and no med side-effects, sleeping well... No panic at all including following triggering milue event which pt reports she handled well. She has talked w/ her mother and is hopeful about DCF case; she can return to her apartment for a time being and otherwise has several family members with whom she can stay. Pt signed a 3 day notice and feels ready to return home. -has remained ion good behavioral/ impulse control and appropriate w/ peers and staff -pt doing well and ready to continue tx in the community. request for dc honored. Plan: CV Q 15 minute checks Prozac 10 mg daily Clonidine p.r.n. for anxiety Melatonin 3 mg q.h.s. Trazodone p.r.n. Benadryl 25 mg q.6 p.r.n. for itching; patient reports intermittent itching episodes ever since she had her 2nd child Patient educated on: diagnosis, medication risk/benefits and therapeutic strategies Informed Consent: understands Reason for continued inpatient stay Substantial Risk for: stable for discharge Time Spent With Patient Time: Total time managing care of this patient today ____ minutes.
[2024-04-13 20:00] VITALS: BP 121/65; PULSE 65; RESP 16; TEMP 36.6; O2SAT 98
[2024-04-13] MEDS: Melatonin 3 MG TABLET PO (21:35)
[2024-04-14 08:23] VITALS: BP 115/56; PULSE 72; RESP 16; TEMP 36.9; O2SAT 97
[2024-04-14] MEDS: FLUoxetine HCl 10 MG CAPSULE PO (08:32)
[2024-04-14] MEDS: diphenhydrAMINE HCL 25 MG CAPSULE PO (08:32)
--- NOTE | 2024-04-14 09:18 | PM.PSYDC ---
DS: Providers Provider Date of Service: 04/14/24 Date of admission: 04/10/24 11:47 Date of discharge: 04/14/24 Primary care physician: [facility] Attending physician on admission: Meliton Ireland Attending physician on discharge: Meliton Ireland DS: Diagnosis Discharge Diagnosis (1) MDD (major depressive disorder), recurrent episode, moderate: Status: Acute (2) PTSD (post-traumatic stress disorder): Status: Acute (3) Panic disorder: Status: Acute DS: Medications Discharge Medications Home Medications: Previous Rx's ?Medication ?Instructions ?Recorded diphenhydramine HCl 25 mg capsule 25 mg PO Q6H PRN itching 30 days 04/14/24 (Benadryl) #30 caps fluoxetine 10 mg capsule 10 mg PO DAILY 30 days #30 caps 04/14/24 melatonin 3 mg tablet 3 mg PO BEDTIME 30 days #30 tabs 04/14/24 Mental Status Exam Mental Status Exam Narrative: Pt is alert and oriented; behavior is cooperative, friendly and calm; patient is not in distress; dressed in casual attire; dyed red streak in hair and with adequate hygiene; mood is described as good and affect congruent, bright, calm; eye contact appropriate; Speech is normal rate, volume and prosody and not pressured; no psychomotor agitation/retardation present; thought process is organized and goal directed; Thought content is on discharge, aftercare, tx; otherwise pertinent to relevant topics and without any delusional content, paranoid ideations or grandiosity; denies any SI/HI. There is no evidence of perceptual disturbance. Patients insight and judgment are intact. Data Data Completed and Pending Completed studies during hospitalization [Text1]: 04/10/24 04/10/24 04/10/24 00:25 10:52 22:56 WBC 14.9 H RBC 4.24 Hgb 13.3 Hct 38.6 MCV 91.0 MCH 31.4 MCHC 34.5 RDW 13.3 Plt Count 269 D MPV 10.7 Immature Gran % (Auto) 0.3 Neut % (Auto) 70.8 Lymph % (Auto) 22.7 Irion % (Auto) 5.7 Eos % (Auto) 0.2 Baso % (Auto) 0.3 Lymph # (Auto) 3.4 Irion # (Auto) 0.9 Eos # (Auto) 0.0 Baso # (Auto) 0.0 Abs Immat Gran (auto) 0.04 H Absolute Neuts (auto) 10.6 H Absolute Nucleated RBC 0.000 Nucleated RBC % (auto) 0.0 Sodium 139 Potassium 3.7 Chloride 106 Carbon Dioxide 23 Anion Gap 14 BUN 13 Creatinine 0.85 Estim Creat Clear Calc 94.9 Estimated GFR > 60 POC Glucose 84 Random Glucose 87 Estimat Average Glucose Hemoglobin A1c % Calcium 9.9 D Magnesium 1.9 Total Bilirubin 0.7 AST 16 ALT 14 Alkaline Phosphatase 47 Total Protein 7.4 Albumin 4.4 Triglycerides Cholesterol LDL Cholesterol, Calc HDL Cholesterol TSH Beta HCG, Quant < 2 Urine Color Yellow Urine Appearance Clear Urine pH 6.5 Ur Specific [place] 1.020 Urine Protein Negative Urine Glucose (UA) Negative Urine Ketones Negative Urine Blood Small (1+) H Urine Nitrite Negative Ur Leukocyte Esterase Trace H Urine RBC 6-10 H Urine WBC 6-10 H Ur Squamous Epith Cells 6-10 Urine Bacteria 2+ Hyaline Casts 0-2 Salicylates < 5.0 L Urine Opiates Screen Not Detected Ur Buprenorphine Scrn Not Detected Ur Oxycodone Screen Not Detected Urine Methadone Screen Not Detected Urine Fentanyl Screen Not Detected Acetaminophen < 3 Ur Barbiturates Screen Not Detected Ur Phencyclidine Scrn Not Detected Ur Amphetamines Screen Not Detected U Benzodiazepines Scrn Not Detected Urine Cocaine Screen Not Detected U Marijuana (THC) Screen POSITIVE H Ethyl Alcohol < 10 04/11/24 07:17 WBC RBC Hgb Hct MCV MCH MCHC RDW Plt Count MPV Immature Gran % (Auto) Neut % (Auto) Lymph % (Auto) Irion % (Auto) Eos % (Auto) Baso % (Auto) Lymph # (Auto) [place]ion # (Auto) Eos # (Auto) Baso # (Auto) Abs Immat Gran (auto) Absolute Neuts (auto) Absolute Nucleated RBC Nucleated RBC % (auto) Sodium Potassium Chloride Carbon Dioxide Anion Gap BUN Creatinine Estim Creat Clear Calc Estimated GFR POC Glucose Random Glucose Estimat Average Glucose 94 Hemoglobin A1c % 4.9 Calcium Magnesium Total Bilirubin AST ALT Alkaline Phosphatase Total Protein Albumin Triglycerides 57 Cholesterol 119 LDL Cholesterol, Calc 63 HDL Cholesterol 45 TSH 0.69 Beta HCG, Quant Urine Color Urine Appearance Urine pH Ur Specific [place] Urine Protein Urine Glucose (UA) Urine Ketones Urine Blood Urine Nitrite Ur Leukocyte Esterase Urine RBC Urine WBC Ur Squamous Epith Cells Urine Bacteria Hyaline Casts Salicylates Urine Opiates Screen Ur Buprenorphine Scrn Ur Oxycodone Screen Urine Methadone Screen Urine Fentanyl Screen Acetaminophen Ur Barbiturates Screen Ur Phencyclidine Scrn Ur Amphetamines Screen U Benzodiazepines Scrn Urine Cocaine Screen U Marijuana (THC) Screen Ethyl Alcohol 04/10/24 Unknown Urine clean catch - Urine oswald top Urine Culture - Final DS: Summary Hospital Course Hospital Course: HPI: Pt is a 24 yo female, mother of 2, no previous psych admissions, who presents for overdose on Ibuprofen after a month of intense psycho-social stressors. Pt reports that until a month ago, she was overall fine dealing with low level of depression since her eldest son in custody of her mother and 1/month having a panic attack, but otherwise coping well enough on her own. She started seeing a therapist 3 months which has been helpful. A month ago her boyfriend and father of her 2yo old suddenly ended the relationship for another woman and moved out; she found out he had not being paying rent or car insurance and she is now $10,000 in debt and being forced into homelessness; she lost access to car insurance and she is a [employer], lost her job. The past few weeks she's been emotionally overwhelmed, depressed and been having panic attacks up to 4x a week (rapid HR, hyperventilating, diaphoretic, chest pressure, confusion which lasts for about 1 minute); she's also developed insomnia, having much trouble falling and staying asleep. This past week, she had first ever episode of sleep paralysis 2x which she found terrifying. Yesterday, she asked ex-partner to watch their 2 yo but he refused. She was desperate to sleep and took 10 ibuprofen; after 20 minutes, not sleepy, she got worried, called her mom who took her to hospital. Pt reiterates she only wanted to sleep, figured it's just ibuprofen...that cant really hurt anyone... She denies any SI at all or ever and says I could never do such a thing... Her 2 yo was home at the time, DCF called and now 2yo is in custody also with her mother. Pt denies any drug/alcohol abuse other than intermittent cannabis; denies manic episodes or behaviors; no AVH; endorses hx of trauma; no hx of medication trials Formulation/clinical reasoning: Patient has history of trauma with PTSD symptoms and chronic. mild to moderate depression; however she has been able to cope with this on her own, working and raising her son. However intense psychosocial stressors including break-up of a long-term relationship, losing her job, her car and facing homelessness have proved overwhelming and exacerbated her chronic symptoms. Patient started therapy 3 months ago. She would like to start medication to help her cope further with her symptoms. Discussed Prozac, risks/side effects with which she understands and agrees. Patient denies any SI at all and has no history of self-harm; loves her 2 sons and remains hopeful and pursuant about getting back custody. Patient did not want any benzos even for panic Hospital course: Admission, patient was cooperative, forthcoming and in good behavioral and impulse control. She was tearful, talking about trauma and stressors but remained adamant that this was in no way a suicide attempt. She was started on Prozac which was effective and well-tolerated. Soon patient started sleeping well and feeling anxiety and depression dissipate. Over the course of her admission she remained in good behavioral and impulse control, appropriate with peers and staff, engaged in treatment, attending groups and feeling back to her regular self. Patient was also hopeful about her future plans including her situation with DCF and housing. Patient felt ready to go and placed a 3 day notice. By the end of her admission She reports she is great and depression and anxiety resolved. She also shared that she has not had any panic attacks at all, including following a triggering milue event which pt reports she handled well. She has talked w/ her mother and is hopeful about DCF case; she is able to return to her apartment for a time being and otherwise has several family members with whom she can stay. Patient already has a therapist with whom she has a good rapport and plans to continuing therapy. Patient is back to baseline, in good mood, future oriented and with outpatient support established. Patient is is not in imminent risk for harm to self or others and her request for discharge honored. Time spent discussing smoking cessation with patient: 3 to 10 minutes Status at Discharge Functional status at discharge: independent ambulation Overall status at discharge: patient is back to baseline Time Spent with Patient Time attestation: Total time managing care of this patient today _40___ minutes. Time spent: Greater than 30 minutes Discharge Plan Discharge Anticipated Discharge Date/Time: 04/14/24 11:30 Patient Disposition: Home, Self-Care Discharge Diagnosis: mdd, recurrent, moderate, in full remission Referrals: [facility]-Therapy and Medication Provider [Other] - 1 Week (If you do not hear from [facility] with your appointments by Saturday04/20/24 please call to inquire about appointments or go to the [facility] walk in at the address above ) [place],[facility] [Primary Care Provider] - 1 Week Discharge Medications: New fluoxetine 10 mg Capsule 10 mg PO DAILY 30 Days Qty: 30 1RF melatonin 3 mg Tablet 3 mg PO BEDTIME 30 Days Qty: 30 1RF Continued diphenhydramine HCl [Benadryl] 25 mg capsule 25 mg PO Q6H PRN (Reason: itching) 30 Days Qty: 30 1RF Discontinued prenat.vits,rashida,[id number] Tablet 1 tab PO DAILY Qty: 30 0RF pyridoxine (vitamin B6) 50 mg tablet 50 mg PO BID PRN (Reason: nausea and vomiting) Qty: 10 0RF pyridoxine (vitamin B6) 50 mg tablet 50 mg PO BID Qty: 20 0RF Discharge Orders: Discharge Order (Routine); Ordered 04/14/24 Ordered By: Meliton Ireland Diet: Regular diet Activity on Discharge: As tolerated Stand Alone Forms: Patient Portal Discharge page, Community Support Print Language: Hebrew Care Plan Goals: Maintain mood and safe behaviors Take medications as prescribed Practice coping skills Continue with outpatient providers and reach out to them as needed Health Concerns: Mood stability and behaviors Plan of Treatment: Follow up with your PCP, psychiatric provider and other outpatient providers regarding above concerns Take medications as prescribed Assessment: Risk assessment at time of discharge:? Patient was interviewed prior to discharge and found to be fully oriented and without any SI or HI. Patient has improved insight and judgment and wants to continue treatment. Patient is not in imminent risk of harm to self or others and has a safety plan that includes presenting to the closest ER or calling 911 if feeling unsafe.? Patient has been observed closely by nursing and unit staff throughout admission; patient has not engaged in any behaviors that suggest dangerousness to self or others and has demonstrated appropriate behaviors and impulse control
== END 2024-04-14 10:56 | disposition home or self-care (01) | DRG 751 ==
LOC: HO.ED 04-10 06:23 → HO.PM5 04-10 12:06
PROVIDERS: Emergency Medicine; Admitting Provider Psychiatry & Neurology Psychiatry; Emergency Provider Internal Medicine; Visit Provider Psychiatry & Neurology Psychiatry
DX: F33.1 Major depressive disorder, recurrent, moderate (principal); F41.0 Panic disorder [episodic paroxysmal anxiety]; F43.10 Post-traumatic stress disorder, unspecified; T39.311A Poisoning by propionic acid derivatives, accidental (unintentional), initial encounter; Z59.811 Housing instability, housed, with risk of homelessness; Z79.899 Other long term (current) drug therapy
CPT/HCPCS: 36415; 80053; 80061; 80143; 80179; 80307; 81001; 81003; 82947; 83036; 83735; 84443; 84702; 85025; 87086; 93005; 99285; S9485

== ENCOUNTER → 2024-04-09 23:57 | Outpatient (BNV) | payer MEDICAID, SELFPAY | PROVIDERS: Emergency Provider Internal Medicine; Visit Provider Internal Medicine Cardiovascular Disease | DX: R00.1 Bradycardia, unspecified (principal); T50.901A Poisoning by unspecified drugs, medicaments and biological substances, accidental (unintentional), initial encounter | CPT/HCPCS: 93010 ==

== ENCOUNTER → 2024-04-10 11:47 | Outpatient (BNV) | payer OTHER, SELFPAY | PROVIDERS: Admitting Provider Psychiatry & Neurology Psychiatry; Emergency Provider Internal Medicine; Visit Provider Psychiatry & Neurology Psychiatry | DX: F33.1 Major depressive disorder, recurrent, moderate (principal); F43.11 Post-traumatic stress disorder, acute; F41.0 Panic disorder [episodic paroxysmal anxiety] | CPT/HCPCS: 99231; 99232 ==